=== PATIENT | female | born 1950 | race Caucasian/White ===

== ENCOUNTER → 2016-12-17 | Outpatient (CLI) | payer BC ==
[~2016-12-17] MED LIST: ASPI81TA28 PO; CLR10 PO; LATA0.009 OPB; MAGN1TAB19 PO; METO1TAB31 PO; OLOP0.1S2 OP; POTA-335 PO; TRET0.1C42 TOP
--- NOTE | 2016-12-17 15:45 | MAMMOGRAPHY REPORT ---
BILATERAL DIGITAL SCREENING MAMMOGRAM WITH CAD: 12/17/2016 CLINICAL HISTORY: Patient presents for routine screening. S/P bilateral augmentation. TECHNIQUE: Bilateral CC and MLO views of the breasts with and without implant displacement views wer e obtained. Current study was also evaluated with a Computer Aided Detection (CAD) system. COMPARISON: Comparison is made to exams dated: 07/11/2014 mammogram, 01/23/2011 mammogram - [facility], 01/20/2008, 03/01/2013 mammogram - [facility], and 11/01/2008. BREAST COMPOSITION: The tissue of both breasts is heterogeneously dense, which may obscure small ma sses. FINDINGS: Bilateral subpectoral silicone implants are stable compared to prior exams. There are a f ew benign rim calcifications and minimal vascular calcifications in the breasts. There is stable no dularity in the lateral and superior left breast on the implant displaced views. No new suspicious mass, architectural distortion or cluster of microcalcifications is seen. IMPRESSION: ACR BI-RADS CATEGORY 1: NEGATIVE There is no mammographic evidence of malignancy. A 1 year screening mammogram is recommended. The p atient will receive written notification of the results. Approximately 10% of breast cancers are not detected with mammography. A negative mammographic repor t should not delay biopsy if a clinically suggestive mass is present. Evon Moore M.D. ay/:12/17/2016 14:40:35 Blackener: Ashleigh GREGG)(Christopher), [facility] letter sent: Normal 1/2 BI-RADS Code: ACR BI-RADS Category 1: Negative
== END | disposition home or self-care (01) ==
LOC: C.MAMM 09:35
PROVIDERS: ATTEND Family Medicine
DX: Z12.31 Encounter for screening mammogram for malignant neoplasm of breast (principal); Z98.82 Breast implant status